=== PATIENT | male | born 1995 ===

== ENCOUNTER 2024-06-14 18:00 | Emergency (ER) | payer OTHER ==
[~2024-06-14] VITALS: Ht 170.2 cm; Wt 70.0 kg
[2024-06-14 18:39] VITALS: BP 136/85; PULSE 86; RESP 18; TEMP 98.1; O2SAT 97
== END 2024-06-14 18:41 | disposition home or self-care (01) ==
LOC: ER 18:01
DX: Z00.00 Encounter for general adult medical examination without abnormal findings (principal); Z04.1 Encounter for examination and observation following transport accident
CPT/HCPCS: 99283